=== PATIENT | male | born 1940 | race Caucasian/White ===

== ENCOUNTER 2017-05-21 06:31 | Day surgery (SDC) | payer MEDICARE, OTHER ==
[2017-05-20 14:59] LABS: HEMOGLOBIN 15.4 g/dL (13.5-17.5); MCH 34.4 pg (26.0-34.0); MCV 98.2 fL (80.0-100.0); MEAN PLATELET VOLUME 9.8 fL (7.4-10.4); RBC 4.48 10x6/uL (4.20-6.10); RDW 12.4 % (11.5-14.5); WBC 7.2 10x3/uL (4.8-10.8)
[~2017-05-21] VITALS: Ht 182.9 cm; Wt 104.3 kg
[~2017-05-21 06:31] MED LIST: ASPIRIN EC81 M1 PO; COZAAR100 MG PO; HYDROCODONE-APA1 TAB PO; NORVASC10 MG PO; PRAVACHOL40 MG PO; RESTORIL15 MG PO
[2017-05-21 08:15] VITALS: BP 105/60; Ht 182.9 cm; Wt 104.3 kg
[2017-05-21 08:50] LABS: ANION GAP 9.3 mmol/L (8-16); CALCIUM 8.7 mg/dL (8.5-10.1); CARBON DIOXIDE 28.7 mmol/L (21.0-32.0); CREATININE - SERUM 1.4 mg/dL (0.6-1.3)
--- NOTE | 2017-05-21 17:27 | NUR ---
1400- PT WITH HOB ELEVATED. VSS. AT BEDSIDE. 1415- DR. LONDON AT BEDSIDE, DISCUSSING PROCEDURAL FINDINGS. PT UP OOB TO BR, VOIDED WITHOUT DIFFICULTY 1425- IV D/C'D, PT TOLERATED. CATHETER INTACT. 1445- DISCHARGE INSTRUCTIONS COMPLETED. PAPERWORK SIGNED. 1450- PT DISCHARGED VIA WHEELCHAIR WITH .
== END 2017-05-21 14:50 | disposition home or self-care (01) ==
LOC: D.OPS 06:31 → D.PAN 09:30 → D.OPS 10:30 → D.PAN 10:30 → D.OPS 14:50
PROVIDERS: Anesthesiology
DX: N40.1 Benign prostatic hyperplasia with lower urinary tract symptoms (principal); N39.41 Urge incontinence; N13.8 Other obstructive and reflux uropathy; R35.0 Frequency of micturition; N30.10 Interstitial cystitis (chronic) without hematuria; Z01.812 Encounter for preprocedural laboratory examination

== ENCOUNTER 2018-08-25 11:37 | Outpatient (CLI) | payer MEDICARE, OTHER ==
[~2018-08-25] VITALS: Ht 182.9 cm; Wt 102.3 kg
--- NOTE | ~2018-08-25 | HEMODYNAMI ---
PATIENT:OG RANDLE MEDICAL RECORD: [id number] : 44 LOCATION:[facility] ADMISSION DATE: 08/25/18 Generatedon:08/25/201814:09 Patient name: OG RANDLE Patient #: [id number] SSN: : 1940 Date of study: 08/25/2018 Page: Of Hemodynamic Procedure Report Patient Data Patient Demographics Procedure consent was obtained First Name: OG Gender: Male Last Name: RAZIA : 1940 Middle Initial: F Age: 77 year(s) Patient #: [id number] Race: Unknown Additional ID: [id number] Contact details Address: [address] [place] [address] [place] State: [place] City: [place] Zip code: [address] Past Medical History Allergies: No known allergies Admission Admission Data Admission Date: 08/25/2018 Admission Time: 11:37 Admit Source: Other Weight (lbs.): 224.87 Weight (kg.): 102 Lab Results Lab Result Date: 08/25/2018 Lab Result Time: 12:10 Biochemistry Name Units Result Min Max BUN mg/dl 18 --(---*)-- 7 18 Creatinine mg/dl 1.1 --(--*-)-- 0.6 1.3 CBC Name Units Result Min Max Hematocrit % 45.8 --(-*--)-- 42 54 Hemoglobin g/dl 16 --(--*-)-- 13.5 17.5 Procedure Procedure Types Cath Procedure Diagnostic Procedure [facility] w/Coronaries Sedation Charges Moderate Sedation up to 15 minutes Procedure Description Procedure Date Procedure Date: 08/25/2018 Procedure Start Time: 13:48 Procedure End Time: 14:08 Procedure Staff Name Function Joaquín Kay MD Performing Physician Markie Bloom RT Monitor Herb Brooks RN Nurse Kye Woods RT Edge Banding Machine Offbearer [place] Otto RT Scrub Procedure Data Cath Procedure Fluoroscopy Diagnostic fluoroscopy Total fluoroscopy Time: 6.2 time: 6.2 min min Diagnostic fluoroscopy Total fluoroscopy dose: 937 dose: 937 mGy mGy Contrast Material Contrast Material Type Amount (ml) Isovue 300 84 Entry Location Entry Primary Successful Side Size Upsize Upsize Entry Closure Briscoe ccessful Closure Location (Fr) 1 (Fr) 2 (Fr) Remarks Device Remarks Radial Right 6 Fr Mechanical artery Short Compression Estimated blood loss: 5 ml Diagnostic catheters Device Type Used For End Catheter Placement DIAGNOSTIC Steven 110cm Procedure 5Fr catheter ([id number]) DIAGNOSTIC AR MOD 5Fr Procedure Catheter ([id number]) DIAGNOSTIC [place] 110cm 5 Procedure Fr catheter (784389) Procedure Complications No complications Procedure Medications Medication Administration Route Dosage Oxygen etCO2 Nasal cannula 2 l/min Heparin Flush Bag added to field 2 bags (1000units/500ml NS) 0.9% NaCl I.V. 100 ml/hr Radial Cocktail added to field 1 syringe (Verapomil 2mg/Nitro 400mcg/Heparin 1500units) Fentanyl I.V. 50 mcg Versed I.V. 1 mg Fentanyl I.V. 50 mcg Versed I.V. 1 mg Fentanyl I.V. 50 mcg Fentanyl I.V. 50 mcg Radial Cocktail I.A. 1 syringe (Verapomil 2mg/Nitro 400mcg/Heparin 1500units) Hemodynamics Rest HGB: 16 (g/dl) Heart Rate: 63 (bpm) Pressure Samples Time Site Value (mmHg) Purpose Heart Use Rate(bpm) 13:52 LV 129/-3,8 Snapshot 83 13:53 AO 112/39(80) Pullback 72 13:53 LV 111/2,12 Pullback 72 Gradients Valve Time Site 1 Site 2 Mean SEP/DFP Peak To Heart Use (mmHg) (sec/min) Peak Rate (mmHg) (bpm) Aortic 13:53 LV AO 0 7 0 72 111/2,12 112/39(80) Calculations Valve P-P Mean Valve Index Valve Source Name Gradient Area Flow (cm2) Aortic 0 0 0 0 Snapshots Pre Cath Intra NCS Post Cath Vital Signs Time Heart Resp SPO2 etCO2 NIBP (mmHg) Rhythm Pain Sedation Rate (ipm) (%) (mmHg) Status Level (bpm) 13:14:48 82 17 100 26.8 143/79(118) NSR 0 (11) 10(A) , No pain 13:19:04 86 16 99 18.6 135/76(113) NSR 0 (11) 10(A) , No pain 13:23:20 81 16 99 35 122/74(105) NSR 0 (11) 10(A) , No pain 13:27:32 70 16 99 27.6 127/71(114) NSR 0 (11) 10(A) , No pain 13:31:44 76 16 98 38.7 128/74(104) NSR 0 (11) 10(A) , No pain 13:35:56 77 16 99 39.5 133/78(112) NSR 0 (11) 10(A) , No pain 13:40:10 65 17 99 39.4 148/76(120) NSR 0 (11) 10(A) , No pain 13:44:28 74 16 97 39.4 135/67(96) NSR 0 (11) 10(A) , No pain 13:48:44 59 16 98 46.9 138/69(106) NSR 0 (11) 9(A) , No pain 13:53:02 67 17 98 28.3 121/69(92) NSR 0 (11) 9(A) , No pain 13:57:12 78 16 98 40.9 139/70(104) NSR 0 (11) 9(A) , No pain 14:02:19 87 16 98 35 169/92(132) NSR 0 (11) 9(A) , No pain 14:06:39 88 17 98 23.1 185/103(140) NSR 0 (11) 10(A) , No pain Medications Time Medication Route Dose Verified Delivered Reason Notes Effectiveness by by 13:11:20 Oxygen etCO2 2 l/min Joaquín Herb Per Nasal Rahul Brooks RN physician cannula 13:11:36 Heparin Flush added 2 bags Joaquín Herb used for Bag to Rahul Brooks mold filler plastic dolls (1000units/500ml field NS) 13:11:44 0.9% NaCl I.V. 100 Joaquín Herb Per ml/hr Rahul Brooks RN physician 13:11:52 Radial Cocktail added 1 Joaquín Herb used for (Verapomil to syringe Rahul Brooks mold filler plastic dolls 2mg/Nitro field 400mcg/Heparin 1500units) 13:42:11 Fentanyl I.V. 50 mcg Joaquín Herb for sedation Rahul Brooks RN 13:42:18 Versed I.V. 1 mg Joaquín Herb for sedation Rahul Brooks RN 13:44:24 Fentanyl I.V. 50 mcg Joaquín Herb for sedation Rahul Brooks RN 13:44:27 Versed I.V. 1 mg Joaquín Herb for sedation Rahul Brooks RN 13:47:58 Fentanyl I.V. 50 mcg Joaquín Herb for sedation Rahul Brooks RN 13:49:35 Fentanyl I.V. 50 mcg Joaquín Herb for sedation Rahul Brooks RN 13:49:43 Radial Cocktail I.A. 1 Joaquín Joaquín for (Verapomil syringe Rahul Kay MD vasodilation 2mg/Nitro 400mcg/Heparin 1500units) Procedure Log Time Note 12:30:44 Kye Suit RT(R) sent for patient. Start room use. 12:34:18 Informed consent obtained and on chart 12:34:21 Admit Source: Other 12:34:47 Diagnostic Cath status Elective 12:34:48 Time tracking: Regular hours (M-F 7:00 - 5:00) 12:34:51 Plan of Care:Hemodynamics will remain stable., Cardiac rhythm will remain stable., Comfort level will be maintained., Respiratory function will remain adequate., Patient/ family verbilizes understanding of procedure., Procedure tolerated without complication., Recovers from procedure without complications.. 13:05:36 H&P Date Dictated: 08/23/2018 Within 30 days and on chart., H&P Addendum completed by physician on day of procedure. (MUST COMPLETE FOR ALL OUTPATIENTS). 13:06:27 Patient received from Pre/Post Procedure Room to [facility] 2 Alert and oriented. Tansferred to table in Supine position. 13:06:33 Warm blankets applied, and maris hugger turned on for patient comfort. 13:06:56 Correct patient and procedure confirmed by team. 13:11:20 Oxygen 2 l/min etCO2 Nasal cannula was administered by Herb Brooks RN; Per physician; 13:11:36 Heparin Flush Bag (1000units/500ml NS) 2 bags added to field was administered by Herb Brooks RN; used for procedure; 13:11:44 0.9% NaCl 100 ml/hr I.V. was administered by Herb Brooks RN; Per physician; 13:11:52 Radial Cocktail (Verapomil 2mg/Nitro 400mcg/Heparin 1500units) 1 syringe added to field was administered by Herb Brooks RN; used for procedure; 13:13:37 ECG and BP/O2 sat monitors applied to patient. 13:13:38 Vital chart was started 13:13:41 Baseline sample Acquired. 13:13:43 Rhythm: sinus rhythm 13:13:45 Full Disclosure recording started 13:13:45 Pre-procedure instructions explained to patient. 13:13:46 Pre-op teaching completed and patient verbalized understanding. 13:13:47 Family in waiting room. 13:13:48 Patient NPO since Midnight. 13:13:54 Patient allergic to No known allergies 13:16:41 Is the patient allergic to Iodine/contrast media? No. 13:16:45 Is patient on blood thinner?No 13:16:45 Patient diabetic? No. 13:16:47 Previous problem with sedation/anesthesia? No ? 13:16:48 Snore? Yes 13:16:49 Sleep apnea? No 13:16:49 Deviated septum? No 13:16:50 Opens mouth fully? Yes 13:16:51 Sticks out tongue? Yes 13:16:52 Airway obstruction? No ? 13:16:56 Dentures? Yes in tight 13:16:58 Modified Branden's test Ulnar < 7 seconds 13:17:00 Patient pain scale 0/10 ?. 13:17:05 IV patent on arrival in left wrist with 0.9% NaCl at O. 13:18:30 Lab Result : BUN 18 mg/dl 13:18:31 Lab Result : Creatinine 1.1 mg/dl 13:18:31 Lab Result : Hematocrit 45.8 % 13:18:31 Lab Result : Hemoglobin 16 g/dl 13:18:37 Patient Weight : 224.87 lbs 13:18:40 Lab results completed and on chart. 13:18:42 Right Radial & Right Groin area was prepped with chlora-prep and draped in sterile fashion 13:18:44 Alarms reviewed by R. N. 13:18:45 Sharps counted by scrub and verified by R.N. 13:18:47 Use device set Radial Dx or PCI 13:18:48 ACIST Syringe (67133) opened to sterile field. 13:18:48 Medline Cath Pack ([id number]) opened to sterile field. 13:18:49 ACIST Hand Control (63283) opened to sterile field. 13:18:50 ACIST Manifold (38380) opened to sterile field. 13:18:50 Tegaderm 4 x 4 (1626W) opened to sterile field. 13:18:51 MBrace Wrist Support ([id number]) opened to sterile field. 13:18:52 Bag Decanter (2002S) opened to sterile field. 13:18:55 SHEATH 6Fr Prelude Radial ([id number]) opened to sterile field. 13:18:56 DIAGNOSTIC WIRE .035 260cm J wire (649761) opened to sterile field. 13:26:27 Zero performed for pressure channel P1 13:42:01 Physician arrived 13:42:01 --------ALL STOP TIME OUT------ 13:42:02 Final Timeout: patient, procedure, and site verified with staff and physician. All members of the team are in agreement. 13:42:04 Right Radial & Right Groin site verified by team. 13:42:06 Physical assessment completed. ASA score P 2 - A patient with mild systemic disease as per Joaquín Kay MD. 13:42:08 Sedation plan: IV Moderate Sedation Medication:Versed, Fentanyl 13:42:11 Fentanyl 50 mcg I.V. was administered by Herb Brooks RN; for sedation; 13:42:18 Versed 1 mg I.V. was administered by Herb Brooks RN; for sedation; 13:44:24 Fentanyl 50 mcg I.V. was administered by Herb Brooks RN; for sedation; 13:44:27 Versed 1 mg I.V. was administered by Herb Brooks RN; for sedation; 13:47:58 Fentanyl 50 mcg I.V. was administered by Herb Brooks RN; for sedation; 13:48:04 Procedure started. 13:48:08 Local anesthetic to right radial artery with Lidocaine 2% by Joaquín Kay MD.INITIAL ACCESS ONLY 13:49:35 Fentanyl 50 mcg I.V. was administered by Herb Brooks RN; for sedation; 13:49:38 A 6 Fr Short sheath was inserted into the Right Radial artery 13:49:43 Radial Cocktail (Verapomil 2mg/Nitro 400mcg/Heparin 1500units) 1 syringe I.A. was administered by Joaquín Kay MD; for vasodilation; 13:50:02 A DIAGNOSTIC Steven 110cm 5Fr catheter (083592) was advanced over the wire and used for Procedure. 13:50:43 Zero performed for pressure channel P1 13:50:47 Zero performed for pressure channel P1 13:52:35 LV gram done using GUNN 13:52:38 Injector settings: Ml/sec: 5, Volume: 15, 13:52:39 LV hemodynamics recorded. 13:52:47 EF : 55 % 13:54:20 Catheter removed. unable to cannulate vessel. 13:54:51 A DIAGNOSTIC AR MOD 5Fr Catheter ([id number]) was advanced over the wire and used for Procedure. 13:57:39 Catheter removed. unable to cannulate vessel. 13:57:51 GUIDE 5FR AR2.0 catheter ([id number]) opened to sterile field. 13:59:41 RCA angiography performed. 13:59:48 A DIAGNOSTIC [place] 110cm 5 Fr catheter (853014) was advanced over the wire and used for Procedure. 14:01:28 LCA angiography performed. 14:03:04 Catheter removed. 14:03:10 TR BAND Standard ([id number]) opened to sterile field. 14:03:33 Sheath removed intact; hemostasis achieved with Mechanical Compression to the Right Radial artery. 14:03:36 Procedure ended.(Physican Out) 14:03:53 Fluoroscopy time 06.20 minutes. 14:04:00 Fluoroscopy dose: 937 mGy 14:04:00 Flurop Dose total: 937 14:04:22 Contrast amount:Isovue 300 84ml. 14:04:24 Sharps counted by scrub and verified by R.N. 14:06:03 Insertion/operative site no bleeding no hematoma. 14:06:15 Post right radial artery:stable, soft, clean and dry 14:06:20 Post Procedure Pulses reassessed and unchanged 14:06:22 Post-procedure physical assessment completed. ASA score P 2 - A patient with mild systemic disease as per Joaquín Kay MD. 14:06:25 Post procedure rhythm: unchanged. 14:06:30 Estimated blood loss: 5 ml 14:06:32 Post procedure instruction explained to patient.Patient verbalizes understanding. 14:06:32 Patient needs reinforcement of post procedure teaching. 14:06:59 Procedure type changed to Cath procedure, Diagnostic procedure, LHC, LHC w/Coronaries, Sedation Charges, Moderate Sedation up to 15 minutes 14:07:52 Procedure and supply charges have been captured, reviewed, submitted and are correct. 14:07:55 Procedure Complication : No complications 14:07:58 Vital chart was stopped 14:07:58 See physician's report for complete and final results. 14:08:01 Report given to Pre/Post Procedure Room. 14:08:04 Patient transfered to Pre/Post Procedure Room with Stretcher. 14:08:05 Procedure ended. 14:08:05 Full Disclosure recording stopped 14:08:09 End room use (Document Last) Device Usage Item Name Manufacture Quantity Catalog Number Hospital Part Current M inimal Lot# / Charge Number Stock Stock Serial# Code ACIST Syringe Acist 1 04040 386990 460523 104189 2 0 (47619) Medical Systems Inc Medline Cath Cardinal 1 [id number] 078547 18113 188376 5 Pack Health ([id number]) ACIST Hand Acist 1 40332 696164 813224 311058 5 Control (37559) Medical Systems Inc ACIST Manifold Acist 1 69789 276530 876735 531133 5 (60390) Medical Systems Inc Tegaderm 4 x 4 3M 1 1626W 868839 044575 730960 5 (1626W) MBrace Wrist Advanced 1 140-0250-00 311414 58574 705521 5 Support Vascular ([id number]) Dynamics Bag Decanter Microtek 1 2001S 060256 45162 406707 5 (2001S) Medical Inc. SHEATH 6Fr Merit 1 [id number] 363863 840482 327416 5 Prelude Radial Medical ([id number]) DIAGNOSTIC WIRE St Eliazar 1 074934 714983 371209 931999 3 0 .035 260cm J wire (745270) DIAGNOSTIC Terumo 1 75-2266 080844 439835 949809 5 Steven 110cm 5Fr catheter (667502) DIAGNOSTIC AR Cardinal 1 264156P 448429 659305 473012 1 5 MOD 5Fr Health Catheter (357389E) GUIDE 5FR AR2.0 Medtronic 1 [id number] 802650 319973 439263 1 catheter ([id number]) DIAGNOSTIC Terumo 1 04-1286 225370 308440 979088 5 [place] 110cm 5 Fr catheter (897436) TR BAND Terumo 1 [id number] 166761 991169 706800 4 0 Standard ([id number]) Signature Audit [place] Stage Time Signature Unsigned Intra-Procedure 08/25/2018 Markie Bloom 2:08:58 PM RT(R) Signatures Monitor : Markie Bloom RT Signature : Date : Time : [address] [place] [address]
[2018-08-25 11:55] VITALS: BP 163/64; Ht 182.9 cm; Wt 102.3 kg
[2018-08-25 12:15] LABS: BASOPHILS 0.4 % (0-2); EOSINOPHILS 13.4 % (0-7); HEMATOCRIT 45.8 % (42.0-54.0); IMMATURE GRANULOCYTES 0.1 % (0-5); LYMPHOCYTES 20.8 % (15-50); MCH 34.3 pg (26.0-34.0); MCHC 34.9 g/dL (31.0-37.0); MCV 98.1 fL (80.0-100.0); MEAN PLATELET VOLUME 9.7 fL (7.4-10.4); MONOCYTES 6.7 % (2-11); NEUTROPHILS 58.6 % (40-80); RBC 4.67 10x6/uL (4.20-6.10); RDW 12.3 % (11.5-14.5); WBC 9.3 10x3/uL (4.8-10.8)
[2018-08-25 12:32] LABS: ANION GAP 13.7 mmol/L (8-16); CALCIUM 9.7 mg/dL (8.5-10.1); CARBON DIOXIDE 26.9 mmol/L (21.0-32.0); CREATININE - SERUM 1.1 mg/dL (0.6-1.3); POTASSIUM - SERUM 4.6 mmol/L (3.5-5.1)
[2018-08-25 12:36] LABS: PLATELET COUNT 245 10x3/uL (130-400)
== END 2018-08-25 16:35 | disposition home or self-care (01) ==
LOC: D.CATH 11:37
PROVIDERS: Internal Medicine Cardiovascular Disease
DX: R07.89 Other chest pain (principal); Z01.812 Encounter for preprocedural laboratory examination

== ENCOUNTER → 2018-08-30 14:28 | Outpatient (CLI) | payer MEDICARE, OTHER ==
[2018-08-25 11:55] VITALS: BMI 30.6
== END | disposition home or self-care (01) ==
LOC: D.CT 14:28
DX: R10.11 Right upper quadrant pain (principal)

== ENCOUNTER → 2018-09-23 07:19 | Outpatient (CLI) | payer MEDICARE, OTHER ==
[2018-08-25 11:55] VITALS: BMI 30.6
== END | disposition home or self-care (01) ==
LOC: D.CT 07:19
DX: R91.8 Other nonspecific abnormal finding of lung field (principal)

== ENCOUNTER 2018-11-06 17:56 | Emergency (ER) | payer MEDICARE, OTHER ==
[~2018-11-06] VITALS: Ht 182.9 cm; Wt 104.5 kg
[2018-11-06 18:01] VITALS: Ht 182.9 cm; Wt 104.5 kg
[2018-11-06] MEDS ORDERED: MOBIC7.5 MG PO (18:02)
[2018-11-06 18:37] LABS: APPEARANCE CLEAR (CLEAR); BILIRUBIN NEGATIVE (NEGATIVE); COLOR YELLOW (YELLOW); GLUCOSE NEGATIVE (NEGATIVE); KETONE NEGATIVE (NEGATIVE); NITRITE NEGATIVE (NEGATIVE); PROTEIN NEGATIVE (NEGATIVE); UROBILINOGEN NORMAL (NORMAL)
[2018-11-06 18:38] LABS: BACTERIA FEW /hpf (NONE SEEN); RED CELLS - URINE 0-5 /hpf (0-5); WHITE CELLS - URINE 0-5 /hpf (0-5)
[2018-11-06 18:58] LABS: BASOPHILS 0.5 % (0-2); EOSINOPHILS 16.7 % (0-7); HEMATOCRIT 44.1 % (42.0-54.0); HEMOGLOBIN 15.1 g/dL (13.5-17.5); IMMATURE GRANULOCYTES 0.1 % (0-5); LYMPHOCYTES 16.4 % (15-50); MCH 33.3 pg (26.0-34.0); MCHC 34.2 g/dL (31.0-37.0); MCV 97.4 fL (80.0-100.0); MEAN PLATELET VOLUME 9.8 fL (7.4-10.4); MONOCYTES 8.3 % (2-11); RBC 4.53 10x6/uL (4.20-6.10); RDW 12.4 % (11.5-14.5); WBC 10.2 10x3/uL (4.8-10.8)
[2018-11-06 19:01] LABS: PLATELET COUNT 185 10x3/uL (130-400)
[2018-11-06 19:08] LABS: APTT 26.3 SECONDS (22.8-39.4); INR 0.96 (0.85-1.17); PROTIME 12.3 SECONDS (11.6-15.0)
[2018-11-06 19:18] LABS: ALBUMIN 3.9 g/dL (3.4-5.0); ALKALINE PHOSPHATASE 66 U/L (46-116); ALT (SGPT) 15 U/L (10-68); BILIRUBIN - TOTAL 0.42 mg/dL (0.2-1.3); CALC OSMOLALITY 278 mosm/kg (275-300); CALCIUM 8.9 mg/dL (8.5-10.1); CARBON DIOXIDE 28.1 mmol/L (21.0-32.0); CHLORIDE - SERUM 103 mmol/L (98-107); CREATININE - SERUM 1.3 mg/dL (0.6-1.3); GLUCOSE 108 mg/dL (74-106); POTASSIUM - SERUM 4.2 mmol/L (3.5-5.1); PROTEIN - SERUM 7.5 g/dL (6.4-8.2); SODIUM 138 mmol/L (136-145); UREA NITROGEN 18 mg/dL (7-18); eGFR NON AFRICAN AMERICAN 57 mL/min (90-120)
[2018-11-06 19:20] LABS: LIPASE 134 U/L (73-393)
[2018-11-06 19:21] LABS: TROPONIN-I < 0.017 ng/mL (0.000-0.060)
[2018-11-06] MEDS ORDERED: LEVAQUIN750 MG PO (21:02)
[2018-11-06] MEDS ORDERED: FLAGYL500 MG PO (21:02)
[2018-11-06] MEDS ORDERED: TYLENOL W/CODEI1 TAB PO (21:03)
[2018-11-06 21:18] VITALS: BP 158/75
== END 2018-11-06 21:18 | disposition home or self-care (01) ==
LOC: D.ER 17:56
PROVIDERS: Family Medicine
DX: K57.32 Diverticulitis of large intestine without perforation or abscess without bleeding (principal); K92.1 Melena; I10 Essential (primary) hypertension

== ENCOUNTER → 2018-11-29 18:20 | Outpatient (CLI) | payer MEDICARE, OTHER ==
[2018-11-06 18:01] VITALS: BMI 31.2
[~2018-11-29 18:20] MED LIST changes: +FLAGYL500 MG PO; +LEVAQUIN750 MG PO; +MOBIC7.5 MG PO; +NORCO 5/325 TAB1 TAB PO; +TYLENOL W/CODEI1 TAB PO
== END | disposition home or self-care (01) ==
LOC: D.LABREF 18:20
DX: R31.9 Hematuria, unspecified (principal)

== ENCOUNTER 2018-12-07 09:30 | Inpatient (IN) | payer MEDICARE, OTHER ==
[2018-12-06 13:05] LABS: BASOPHILS 0.5 % (0-2); EOSINOPHILS 20.4 % (0-7); HEMATOCRIT 45.4 % (42.0-54.0); HEMOGLOBIN 15.6 g/dL (13.5-17.5); IMMATURE GRANULOCYTES 0.1 % (0-5); LYMPHOCYTES 24.9 % (15-50); MCH 33.2 pg (26.0-34.0); MCHC 34.4 g/dL (31.0-37.0); MCV 96.6 fL (80.0-100.0); MEAN PLATELET VOLUME 9.8 fL (7.4-10.4); MONOCYTES 6.8 % (2-11); NEUTROPHILS 47.3 % (40-80); PLATELET COUNT 184 10x3/uL (130-400); RDW 12.5 % (11.5-14.5); WBC 8.8 10x3/uL (4.8-10.8)
[2018-12-06 13:17] LABS: CALCIUM 8.8 mg/dL (8.5-10.1); CARBON DIOXIDE 29.5 mmol/L (21.0-32.0); CREATININE - SERUM 1.2 mg/dL (0.6-1.3); POTASSIUM - SERUM 4.5 mmol/L (3.5-5.1)
[~2018-12-07] VITALS: Ht 180.3 cm; Wt 102.1 kg
[~2018-12-07 09:30] MED LIST changes: -NORCO 5/325 TAB1 TAB PO; -RESTORIL15 MG PO; +TEMAZEPAM30 MG PO
[2018-12-07 09:47] VITALS: BP 163/67
[2018-12-07 16:26] VITALS: BP 162/75
[2018-12-07 16:56] VITALS: BP 165/75; BMI 31.4
--- NOTE | 2018-12-07 19:55 | NUR ---
FAMILY/NEIGHBOR AT BEDSIDE, A&0 X 4. ABDOMEN DISTENDED, BOWEL SOUNDS ACTIVE X 4. ALL DRESSINGS CLEAN EXCEPT SCANT BLOOD NOTED ON RIGHT UPPER ABDOMEN BANDANGE. WILL CONTINUE TO MONITOR.
[2018-12-07 20:00] VITALS: BP 171/78
[2018-12-08] VITALS: BP 123/66
--- NOTE | 2018-12-08 03:20 | NUR ---
CONCUR W/ INFORMATICS CONSULTANT ASSESSMENT
[2018-12-08 04:00] VITALS: BP 130/64
[2018-12-08 05:44] LABS: BASOPHILS 0 % (0-2); EOSINOPHILS 0 % (0-7); HEMATOCRIT 41.7 % (42.0-54.0); HEMOGLOBIN 14.5 g/dL (13.5-17.5); IMMATURE GRANULOCYTES 0.2 % (0-5); LYMPHOCYTES 6.4 % (15-50); MCH 33.3 pg (26.0-34.0); MCHC 34.8 g/dL (31.0-37.0); MCV 95.9 fL (80.0-100.0); MEAN PLATELET VOLUME 9.8 fL (7.4-10.4); MONOCYTES 5.5 % (2-11); NEUTROPHILS 87.9 % (40-80); PLATELET COUNT 188 10x3/uL (130-400); RBC 4.35 10x6/uL (4.20-6.10); RDW 12.4 % (11.5-14.5)
[2018-12-08 05:47] LABS: WBC 13.6 10x3/uL (4.8-10.8)
[2018-12-08 06:26] LABS: ANION GAP 16.9 mmol/L (8-16); CALCIUM 8.1 mg/dL (8.5-10.1); CARBON DIOXIDE 22.5 mmol/L (21.0-32.0); CREATININE - SERUM 1.2 mg/dL (0.6-1.3); POTASSIUM - SERUM 4.4 mmol/L (3.5-5.1)
[2018-12-08 10:04] VITALS: BP 128/61
[2018-12-08 12:16] VITALS: Ht 180.3 cm; Wt 102.1 kg
[2018-12-08 17:34] VITALS: BP 117/59
[2018-12-08 20:54] VITALS: BP 132/62
--- NOTE | 2018-12-08 23:52 | NUR ---
PT REPORTS FEELING OF NOT FULLY EMPTYING BLADDER, SUGGESTED BLADDER SCANNER, PT REFUSED STATING HE WASN'T FULL YET. WILL CONTINUE TO MONITOR OUTPUT.
[2018-12-09 00:59] VITALS: BP 129/50
--- NOTE | 2018-12-09 02:50 | NUR ---
PT LYING IN BED RESTING WITHOUT DISTRESS OR NEEDS. CONCUR W/ SERVER MANAGER ASSESSMENT. CL IN REACH, WILL CONTINUE TO MONITOR
--- NOTE | 2018-12-09 03:00 | NUR ---
PT STATES HIS CAME BY AND BROUGHT, "SUPPLIES," FROM HOME. PT STATED HE SELF CATHS AT HOME AND HE SELF CATHED HISELF AFTER SHE BROUGHT THEM.
[2018-12-09 06:40] LABS: ANION GAP 13.4 mmol/L (8-16); CALCIUM 7.2 mg/dL (8.5-10.1); CARBON DIOXIDE 25.1 mmol/L (21.0-32.0); POTASSIUM - SERUM 4.5 mmol/L (3.5-5.1)
[2018-12-09 06:42] LABS: CREATININE - SERUM 1.6 mg/dL (0.6-1.3)
[2018-12-09 07:33] LABS: BASOPHILS 0.2 % (0-2); EOSINOPHILS 2.8 % (0-7); HEMATOCRIT 37.4 % (42.0-54.0); HEMOGLOBIN 12.2 g/dL (13.5-17.5); IMMATURE GRANULOCYTES 0.2 % (0-5); LYMPHOCYTES 17.4 % (15-50); MCHC 32.6 g/dL (31.0-37.0); NEUTROPHILS 73.4 % (40-80); PLATELET COUNT 152 10x3/uL (130-400); RDW 13.3 % (11.5-14.5)
[2018-12-09 08:23] LABS: MCV 101.1 fL (80.0-100.0)
--- NOTE | 2018-12-09 08:32 | NUR ---
DICE SPOTTER NOTE-STATES PASSING GAS BUT BOWEL SOUNDS HYPOACTIVE. NO NAUSEA AT PRESENT. STATES PAIN LEVEL5/10 BUT STATES GLAZE GRINDER IS WORKING TO HELP. LAP SITES CLEAN AND DRY WITH MIDLINE DRESSING CLEAN AND DRY. ABD DISTENDED. ENCOURAGED TO BE UP IN CHAIR AND IN HALLWAY THIS SHIFT. WILL CONTINUE TO MONITOR
[2018-12-09 08:49] VITALS: BP 125/58
--- NOTE | 2018-12-09 10:44 | OP ---
PATIENT NAME: OG RANDLE MEDICAL RECORD: [id number] :44 LOCATION:D.MS [id number] ADMISSION DATE:12/07/18 SURGEON: MASTER BARNETT MD DATE OF OPERATION: 12/07/2018 PREOPERATIVE DIAGNOSES: 1. Recurrent diverticulitis. 2. Hypertension. 3. Hypercholesterolemia. POSTOPERATIVE DIAGNOSES: 1. Recurrent diverticulitis. 2. Hypertension. 3. Hypercholesterolemia. PROCEDURE: Hand-assisted laparoscopic sigmoid colectomy. SURGEON: Master Barnett MD POPCORN ATTENDANT: Narcisa Larkin APRN REPORT OF OPERATION: The patient's abdomen was prepped and draped in sterile fashion. A cutdown was made in the suprapubic region in the midline and electrocautery was used to dissect through the subcutaneous tissues and fascia into the abdominal cavity. Once inside, a GelPort was inserted with a 5-mm trocar within it. The abdomen was insufflated and then a 5-mm trocar was placed under direct visualization in the right lateral abdomen and a 12-mm trocar was placed just anterior to the right anterior-superior iliac crest. The patient had some inflammatory adhesions of the sigmoid colon to the inferior aspect of the abdominal cavity. These were taken down using electrocautery. Eventually, we were able to free up this portion of the bowel and mobilize it medially. We took down the white line of Toldt and mobilized the splenic flexure using electrocautery. In order to facilitate this, I actually had to put another 5-mm trocar in the left lateral abdomen. Once the splenic flexure was mobilized, then we were able to move the entire left colon medially. A window was made in the mesocolon at the rectosigmoid junction and the proximal rectum was transected with a 45 blue load Endo-COLTEN stapler. The mesentery was taken down with two fires of 45 white load Endo-COLTEN stapler. We then eviscerated this portion of the sigmoid colon through the wound protector. We performed clamp and tie technique to take down some of the residual mesentery. I then eventually transected the distal descending colon using electrocautery. This portion of bowel was sent off for permanent specimen. A 2-0 Prolene was used to make a pursestring on the open bowel and a 29 EEA anvil was inserted. After the pursestring was tied down tightly, then the multiple anal dilators were placed through the anus and rectum followed by the 29 EEA stapler. An end-to-end anastomosis was performed under direct visualization. At the conclusion of this, we had 2 complete rings of tissue in the stapler and we checked the anastomosis under water by instilling air into the rectum and there was no sign of leak. The 3-0 silks were used in a Lemberted fashion to oversew the staple line. We then irrigated out the abdomen thoroughly with normal saline. The midline fascia was then closed with running #1 loop PDS's times 2. The 12-mm trocar site fascia was closed with a single interrupted #0 Vicryl. The wounds were irrigated out with normal saline and then closed with anisa. COMPLICATIONS: None. OPERATIVE REPORT [id number] RAZIAOG CONDITION: Stable. ANESTHESIA: General endotracheal. BLOOD LOSS: 30 mL. TRANSINT:[id number] Voice Confirmation ID: [id number] DOCUMENT ID: [id number] MASTER BARNETT MD at 1044 CC: DOMINIQUE NGUYEN MD and LAUREN CAMEJO MD [id number] DICTATION DATE: 12/07/18 1533 CERAMIC SPRAYER: 12/07/18 1823 ADM IN [facility] [address] [place] [address]
--- NOTE | 2018-12-09 12:57 | MORECARE ---
CASE MANAGEMENT DISCHARGE SUMMARY PATIENT: OG RANDLE UNIT: [id number] ADM DATE: 12/07/18 AGE: 78 : 42 SEX: M ROOM/BED: D.2205 AUTHOR: TARUN,DOC PHYSICIAN: REFERRING PHYSICIAN: JESI BARNETT MD DATE OF SERVICE: 12/09/18 Discharge Plan Patient Name: OG RANDLE Facility: [facility]:[place] : 1940 Planned Disposition: Home Anticipated Discharge Date: Discharge Date: Expected LOS: Initial Reviewer: [email or web address] Initial Review Date: 12/07/2018 Generated: 12/09/18 1:57 pm Comments DCP- Discharge Planning Updated by [email or web address]: Gabriela Klein on 12/09/18 11:[address] Patient Name: OG RANDLE Admission Status: Elective Accout number: [id number] Admission Date: 12-07-2018 : 1940 Admission Diagnosis: Attending: JESI BARNETT Current LOS: 2 Anticipated DC Date: Planned Disposition: Home Primary Insurance: MEDICARE A & B Discharge Planning Comments: CM met with patient to assess discharge planning needs. Patient lives independently at home where he plans to return at discharge. 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 He states his home is safe to return. He denies any HH or DME needs at this time. IMM served and explained. He anticipates to be discharged tomorrow. CM will continue to follow and assist with DC planning as needed Childcare Center Director: Gabriela Klein DCPIA - Discharge Planning Initial Assessment Updated by [email or web address]: Gabriela Klein on 12/09/18 12:52 pm * Is the patient Alert and Oriented? Yes * How many steps to enter\exit or inside your home? * PCP [facility] * [facility] * Preadmission Environment Home with Family * ADLs Independent * Equipment None * List name and contact numbers for known caregivers / representatives who currently or will assist patient after discharge: ESSENCE () [phone] * Verbal permission to speak to the caregivers and representatives has been obtained from the patient. N/A * Community resources currently utilized None * Additional services required to return to the preadmission environment? No * Can the patient safely return to the preadmission environment? Yes * Has this patient been hospitalized within the prior 30 days at any hospital? No Coverage Notice Reviewer: [email or web address] Pj Klein Notice Issued Date-Time: 12/09/2018 12:00 Notice Type: IM Discharge Notice Notice Delivered To: Patient Relationship to Patient: Expeditionary Fighting Vehicle Crewman Name: Delivery Method: HAND - Hand Delivered Brinda Days: Prior Verbal Notification: Recipient Understood Notice: Yes Recipient Signature: Yes Med Rec Note Co-signed by Attending: Coverage Notice Comment: Patient Name: OG RANDLE Page [phone] at 1257 All edits/amendments must be made on the electronic document DICTATION DATE: 12/09/181255 PROTOTYPE MODEL MAKER: SOBEIDA 12/09/18 1256 RPT#: [id number] DC DATE: STATUS: ADM IN [facility] [address] [place] [address] END OF REPORT
[2018-12-09 16:16] VITALS: BP 119/60
--- NOTE | 2018-12-09 22:00 | NUR ---
SUPINE IN BED, DENIES NEEDS AT THIS TIME. STATES HIS PAIN IS WELL CONTROLLED. REPORTS HE HAS BEEN AND WILL STILL CONTINUE TO SELF-CATH NEEDED. INFORMED PT OF IMPORTANCE OF ACCURATE OUTPUT RECORDING. PT AGRRED TO EMPTY HIS VOIDS INTO URINAL OR HAT FOR MORE SPECIFIC I&Os. SUGGESTED PT APPLY SCDs, PT REFUSED. WILL CONTINUE TO MONITOR.
--- NOTE | 2018-12-10 03:35 | NUR ---
RESTING QUITELY RESP UNLABORED NO APPARENT DISTRESS CALL ESPINOZA TINAJERO
--- NOTE | 2018-12-10 03:50 | NUR ---
WHILE PASSING THE ROOM, I HEARD THE TOILET FLUSH. KNOCKED ON DOOR AND ENTERED PT WAS LAYING BACK IN HIS BED. GLANCED IN BATHROOM TO SEE BOTH URINALS WERE EMPTY AND URINE HAT THAT WAS PLACED UNDER TOILET SEAT WAS IN THE TRASH. REINFORCED TO PT THAT WE NEED RECORD THE AMOUNT OF URINE IN MLS TO HELP ASSESS HIS KIDNEY FUNCTION. PT SAID, "OH OKAY, OH YEAH," AND THEN BEGAN TO SPEAK ABOUT HOW DISTENDED HE'S BEEN AND HOW HE HAS BEEN HOLDING FLUID, BUT HE IS GOING HOME TODAY. PT THE REQUESTED ALL LIGHTS BE OFF AND DOOR SHUT SO HE COULD TRY TO GET SOME MORE REST.
[2018-12-10 07:51] LABS: BASOPHILS 0.2 % (0-2); CALCIUM 7.3 mg/dL (8.5-10.1); CARBON DIOXIDE 23.9 mmol/L (21.0-32.0); CHLORIDE - SERUM 104 mmol/L (98-107); EOSINOPHILS 3.4 % (0-7); GLUCOSE 102 mg/dL (74-106); HEMATOCRIT 36.2 % (42.0-54.0); HEMOGLOBIN 11.7 g/dL (13.5-17.5); IMMATURE GRANULOCYTES 0.4 % (0-5); MCH 32.5 pg (26.0-34.0); MCHC 32.3 g/dL (31.0-37.0); MCV 100.6 fL (80.0-100.0); MEAN PLATELET VOLUME 10.1 fL (7.4-10.4); MONOCYTES 6.8 % (2-11); NEUTROPHILS 77.2 % (40-80); PLATELET COUNT 157 10x3/uL (130-400); POTASSIUM - SERUM 3.9 mmol/L (3.5-5.1); RDW 13.1 % (11.5-14.5); SODIUM 137 mmol/L (136-145); WBC 8.4 10x3/uL (4.8-10.8); eGFR NON AFRICAN AMERICAN 77 mL/min (90-120)
[2018-12-10 08:25] LABS: CALC OSMOLALITY 274 mosm/kg (275-300); UREA NITROGEN 16 mg/dL (7-18)
[2018-12-10 08:37] VITALS: BP 169/73
--- NOTE | 2018-12-10 10:37 | NUR ---
NUTRITION F/U PT NOW ON CLEAR LIQUID DIET. WILL CONTINUE TO MONITOR DIET ADVANCEMENT, PO INTAKE. RD FOLLOWING
[2018-12-10 12:27] VITALS: BP 146/68
[2018-12-10 16:32] VITALS: BP 163/71
--- NOTE | 2018-12-10 19:00 | NUR ---
WENT TO ENTER PT ROOM AND PT NOT IN ROOM. PT AT NURSES STATION UPSET. STATES THAT HE IS "CHOKING ON PHLEGM" AND "I NEED MEDICINE NOW!!" CALMED PT DONE. ASSESSED LUNGS. NO AUDIBLE CRACKLES OR WHEEZES NOTICED WHEN AUSCULTATING. RETURNED PT BACK TO BED WITH NO ISSUES. CALL LIGHT IN REACH.
[2018-12-10 20:00] VITALS: BP 157/60
--- NOTE | 2018-12-10 22:00 | NUR ---
ADMINSTERED PT MEDICATION WITH NO ISSUES. PT TOLERATED WELL. PT APOLOGIZED FOR "OUTBURST" STATES "I HOPE TO GET SOME REST."
[2018-12-11 04:00] VITALS: BP 157/74
--- NOTE | 2018-12-11 05:59 | NUR ---
I CONCUR WITH ENVIRONMENTAL GEOLOGIST ASSESSMENT.
--- NOTE | 2018-12-11 07:15 | NUR ---
MORNING ASSESSMENT COMPLETE. SEE ASSESSMENT FLWOSHEET FOR FURTHER DETAILS. PT LYING IN BED AAO X4 TO PERSON, PLACE, TIME, AND SITUATION. AT BEDSIDE. 3 LAP SITES AND MIDLINE INCISION NOTED TO ABD. SLIGHT DISTENTION NOTED TO ABD; PT CLAIMS IN HAS GONE DOWN A LOT. BOWEL SOUNDS ACTIVE X4. DENIES NEEDS AT THIS TIME. CL INR EACH.
[2018-12-11 08:05] VITALS: BP 162/80
[2018-12-11 11:49] VITALS: BP 151/69
[2018-12-11 16:45] VITALS: BP 166/78
--- NOTE | 2018-12-11 20:06 | NUR ---
PATIENT RESTING IN BED WITH VINEYARD WORKER AT BEDSIDE AND REQUESTED SLEEP MED. PATIENT DENIES OTHER NEEDS AT THIS TIME. BED IN LOWEST POSITION AND CL WITHIN REACH. ENCOURAGED THE PATIENT TO CALL IF HE HAS NEEDS. WILL ADMINISTER MEDS AND CONTINUE TO MONITOR.
[2018-12-11 20:41] VITALS: BP 147/71
[2018-12-12] MEDS ORDERED: NORCO 5/325 TAB1 TAB PO (00:11)
[2018-12-12 00:40] VITALS: BP 147/72
--- NOTE | 2018-12-12 01:52 | NUR ---
PATIENT RESTING IN BED WITH EYES CLOSED AND NO S/S OF DISTRESS. WILL CONTINUE TO MONITOR.
[2018-12-12 05:01] VITALS: BP 154/72
--- NOTE | 2018-12-12 08:00 | NUR ---
DISCHARGE PAPERWORK SIGNED, ALL QUESTIONS ANSWERED.
[2018-12-12 08:46] VITALS: BP 91/46
--- NOTE | 2018-12-14 12:24 | MORECARE ---
CASE MANAGEMENT DISCHARGE SUMMARY PATIENT: OG RANDLE UNIT: [id number] ADM DATE: 12/07/18 AGE: 78 : 42 SEX: M ROOM/BED: D.2205 AUTHOR: TARUNDOC PHYSICIAN: REFERRING PHYSICIAN: JESI BARNETT MD DATE OF SERVICE: 12/14/18 Discharge Plan Patient Name: OG RANDLE Facility: [facility]:[place] : 1940 Planned Disposition: Home Anticipated Discharge Date: Discharge Date: 12/12/2018 Expected LOS: Initial Reviewer: [email or web address] Initial Review Date: 12/07/2018 Generated: 12/14/18 1:24 pm Comments DCP- Discharge Planning Updated by [email or web address]: Gabriela Klein on 12/09/18 11:[address] Patient Name: OG RANDLE Admission Status: Elective Accout number: [id number] Admission Date: 12-07-2018 : 1940 Admission Diagnosis: Attending: JESI BARNETT Current LOS: 2 Anticipated DC Date: Planned Disposition: Home Primary Insurance: MEDICARE A & B Discharge Planning Comments: CM met with patient to assess discharge planning needs. Patient lives independently at home where he plans to return at discharge. 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 He states his home is safe to return. He denies any HH or DME needs at this time. IMM served and explained. He anticipates to be discharged tomorrow. CM will continue to follow and assist with DC planning as needed Sample Card Maker: Gabriela Klein DCPIA - Discharge Planning Initial Assessment Updated by [email or web address]: Gabriela Klein on 12/09/18 12:52 pm * Is the patient Alert and Oriented? Yes * How many steps to enter\exit or inside your home? * PCP [facility] * [facility] * Preadmission Environment Home with Family * ADLs Independent * Equipment None * List name and contact numbers for known caregivers / representatives who currently or will assist patient after discharge: ESSENCE () [phone] * Verbal permission to speak to the caregivers and representatives has been obtained from the patient. N/A * Community resources currently utilized None * Additional services required to return to the preadmission environment? No * Can the patient safely return to the preadmission environment? Yes * Has this patient been hospitalized within the prior 30 days at any hospital? No Coverage Notice Reviewer: [email or web address] - Gabriela Klein Notice Issued Date-Time: 12/09/2018 12:00 Notice Type: IM Discharge Notice Notice Delivered To: Patient Relationship to Patient: Product Manager Name: Delivery Method: HAND - Hand Delivered Brinda Days: Prior Verbal Notification: Recipient Understood Notice: Yes Recipient Signature: Yes Med Rec Note Co-signed by Attending: Coverage Notice Comment: Last DP export: 12/09/18 11:57 a Patient Name: OG RANDLE Page [id number] at 1224 All edits/amendments must be made on the electronic document DICTATION DATE: 12/14/181223 MACHINE ROOM OPERATOR: SOBEIDA 12/14/18 1224 RPT#: [id number] DC DATE:12/12/18 STATUS: DIS IN [facility] [address] [place] [address] END OF REPORT
[2019-01-11] MEDS ORDERED: PROTONIX40 MG PO (09:36)
== END 2018-12-12 09:01 | disposition home or self-care (01) | DRG 330 ==
LOC: D.MS 09:30 → D.SDCHOLD 09:30 → D.MS 16:10
PROVIDERS: ADMIT Surgery
PROC: 0DTN0ZZ Resection of Sigmoid Colon, Open Approach (ICD-10-PCS; principal; 2018-12-07 11:45)
DX: K57.32 Diverticulitis of large intestine without perforation or abscess without bleeding (principal); K56.7 Ileus, unspecified; I10 Essential (primary) hypertension; E78.00 Pure hypercholesterolemia, unspecified

== ENCOUNTER 2019-01-13 06:25 | Day surgery (SDC) | payer MEDICARE, OTHER ==
[2019-01-11 10:19] LABS: HEMATOCRIT 45.4 % (42.0-54.0); HEMOGLOBIN 15.5 g/dL (13.5-17.5); MCH 33.2 pg (26.0-34.0); MCHC 34.1 g/dL (31.0-37.0); MCV 97.2 fL (80.0-100.0); MEAN PLATELET VOLUME 9.7 fL (7.4-10.4); RBC 4.67 10x6/uL (4.20-6.10); RDW 12.7 % (11.5-14.5); WBC 9.1 10x3/uL (4.8-10.8)
[~2019-01-13] VITALS: Ht 180.3 cm; Wt 103.9 kg
[~2019-01-13 06:25] MED LIST changes: +NORCO 5/325 TAB1 TAB PO; +PROTONIX40 MG PO
[2019-01-13 06:38] VITALS: BP 145/70; Ht 180.3 cm; Wt 103.9 kg
--- NOTE | 2019-01-13 09:10 | NUR ---
REC'D FROM SURGERY. FAMILY AT BEDSIDE. FL TRAY BROUGHT TO PT.
--- NOTE | 2019-01-13 09:40 | NUR ---
TOLERATED DIET. IV DC'D WITH CATHETER INTACT. VOIDING WITHOUT DIFFICULTY.
--- NOTE | 2019-01-13 09:45 | NUR ---
WRITTEN AND VERBAL DC INST. GIVEN TO PT. VERBALIZED UNDERSTANDING.
--- NOTE | 2019-01-13 09:50 | NUR ---
DC'D HOME WITH FAMILY VIA PRIVATE VEHICLE. TAKEN TO VEHICLE VIA WC. STABLE AT TIME OF DC.
--- NOTE | 2019-01-13 10:06 | OP ---
PATIENT NAME: OG RANDLE MEDICAL RECORD: [id number] :44 LOCATION:D.OPS ADMISSION DATE: SURGEON: TAMIKO LONDON MD DATE OF OPERATION: 01/13/2019 SURGEON: Tamiko London MD ANESTHESIA: TIVA by Richie Thrasher CRNA DIAGNOSES: Obstructive benign prostatic hyperplasia. CHRISTIN 40 mL prostate. IPSS is 21. Quality of life score is 5. FINDINGS: UroLift with 5 implants deployed, 3 remained in the patient, 2 are in the left side and there is one on the right verumontanum level. FINDINGS: Bilateral lateral lobe hyperplasia, which is primarily obstructive towards the apex. Single ureteral orifices bilaterally with no bladder tumors. BLOOD LOSS: Minimal. CLINICAL HISTORY: This is a 78-year-old male with difficulty voiding. He has urinary urgency and frequency also. He had cystoscopy, which showed obstructive BPH. He comes today to have the UroLift procedure done. HE IS ALLERGIC TO MORPHINE. He was given Ancef electronic parts designer to the OR. DESCRIPTION OF PROCEDURE: We gave the patient IV sedation. He was then placed in the dorsal lithotomy position and prepped and draped. Cystoscopy showed an obstructive bilateral lateral lobes primarily near the apex. As we went towards the bladder neck, the bladder neck was relatively open. The prostatic urethra was short in length. The bladder was normal without any lesions. Single ureteral orifices are seen on each side. I initially placed the 2 atypical units at the level of the verumontanum. These were placed at the anterior lateral wall. One unit was placed on each side. I then placed a left bladder neck level unit about 1.5 cm distal to the bladder neck. This also held without any difficulty. I attempted twice to place a bladder neck unit on the right side, but both times I hit bone or some other structure on the opposite side of the prostate, which prevented the unit from firing properly. As the urethra was actually quite wide open, at this point I decided to abandon further attempts to place the unit into the right bladder neck level. TRANSINT:[id number] Voice Confirmation ID: [id number] DOCUMENT ID: [id number] TAMIKO LONDON MD at 1006 CC: [id number] DICTATION DATE: 01/13/19915 FLOORING SALESPERSON: 01/13/19948 [facility] [address] [id number]
== END 2019-01-13 09:50 | disposition home or self-care (01) ==
LOC: D.OPS 06:25 → D.PAN 10:00 → D.OPS 10:45
PROVIDERS: Anesthesiology; ATTEND Urology
DX: N40.1 Benign prostatic hyperplasia with lower urinary tract symptoms (principal); N13.8 Other obstructive and reflux uropathy; R35.0 Frequency of micturition; R39.15 Urgency of urination; Z88.5 Allergy status to narcotic agent; Z01.812 Encounter for preprocedural laboratory examination

== ENCOUNTER → 2019-02-10 13:06 | Outpatient (CLI) | payer MEDICARE, OTHER ==
[2019-01-13 06:38] VITALS: BMI 32.0
== END | disposition home or self-care (01) ==
LOC: D.RT 13:00
PROVIDERS: ATTEND Internal Medicine Pulmonary Disease
DX: R93.89 Abnormal findings on diagnostic imaging of other specified body structures (principal)

== ENCOUNTER → 2019-04-25 13:02 | Outpatient (CLI) | payer MEDICARE, OTHER ==
[2019-01-13 06:38] VITALS: BMI 32.0
== END | disposition home or self-care (01) ==
LOC: D.RAD 08:00
PROVIDERS: ATTEND Internal Medicine Gastroenterology
DX: R13.10 Dysphagia, unspecified (principal)

== ENCOUNTER → 2019-11-04 09:51 | Outpatient (CLI) | payer MEDICARE, OTHER ==
[2019-01-13 06:38] VITALS: BMI 32.0
--- NOTE | ~2019-11-04 | HEMODYNAMI ---
PATIENT:OG RANDLE MEDICAL RECORD: [id number] : 44 [id number] ADMISSION DATE: 11/04/19 Generatedon:11/04/201911:15 Patient name: OG RANDLE Patient #: [id number] SSN: : 1940 Date of study: 11/04/2019 Page: Of Hemodynamic Procedure Report Patient Data Patient Demographics Procedure consent was obtained First Name: OG Gender: Male Last Name: RAZIA : 1940 Middle Initial: F Age: 79 year(s) Patient #: [id number] Race: Unknown Additional ID: [id number] Contact details Address: [address] [place] [address] circle State: [place] City: [place] Zip code: [address] Past Medical History Allergies: No known allergies Admission Admission Data Admission Date: 11/04/2019 Admission Time: 9:51 Procedure Procedure Types Cath Procedure Peripheral Cath Diagnostic Procedure Miscellaneous Aspiration/Injection (Joint) Procedure Description Procedure Date Procedure Date: 11/04/2019 Procedure Start Time: 11:06 Procedure Staff Name Function Oswald Maharaj MD Performing Physician Kimo Lopez RT Monitor Vane Anthnoy RN Nurse Procedure Data Cath Procedure Fluoroscopy Diagnostic fluoroscopy Total fluoroscopy Time: 0.4 time: 0.4 min min Diagnostic fluoroscopy Total fluoroscopy dose: 7 dose: 7 mGy mGy Contrast Material Contrast Material Type Amount (ml) Isovue 300 6 Hemodynamics Rest Pre Cath Intra NCS Post Cath Procedure Log Time Note 10:51:00 Kimo Lopez RT (R) (CV) sent for patient. Start room use. 10:51:08 Patient received from Other to IR Alert and oriented. Tansferred to table in Supine position. 10:51:11 Signed procedure consent form obtained from patient. 10:51:12 Warm blankets applied, and maris hugger turned on for patient comfort. 10:51:13 Correct patient and procedure confirmed by team. 10:51:15 Full Disclosure recording started 10:51:15 - 10:51:16 Pre-procedure instructions explained to patient. 10:51:17 Pre-op teaching completed and patient verbalized understanding. 10:51:27 Is patient on blood thinner?No 10:51:35 Patient allergic to No known allergies 10:51:47 Right groin area was prepped with chlora-prep and draped in sterile fashion 11:05:28 Physician arrived 11:05:29 --------ALL STOP TIME OUT------ 11:05:29 Final Timeout: patient, procedure, and site verified with staff and physician. All members of the team are in agreement. 11:05:31 Right groin site verified by team. 11:05:37 Sedation plan: Local Anesthetic Medication:Lidocaine 11:05:52 Procedure started. 11:06:29 Local anesthetic to right hip with Lidocaine 1% by Oswald Maharaj MD.INITIAL ACCESS ONLY 11:06:53 SAFE-T PLUS MYELOGRAM TRAY opened to sterile field. 11:13:55 Procedure ended.(Physican Out) 11:14:08 Fluoroscopy time 00.40 minutes. 11:14:10 Fluoroscopy dose: 7 mGy 11:14:10 Flurop Dose total: 7 11:14:18 Contrast amount:Isovue 200 6ml. 11:14:54 BANAIDE APPLIED SITE STABLE AND PT SENT HOME Device Usage Item Name Manufacture Quantity Catalog Hospital Part Current Minimal Lot# / Number Charge Number Stock Stock Serial# Code SAFE-T CareFusion 1 [id number] PLUS MYELOGRAM TRAY Signature Audit [place] Stage Time Signature Unsigned Intra-Procedure 11/04/2019 Kimo 11:15:10 AM John RT (R) (CV) [facility] [address] [place] [address]
== END | disposition home or self-care (01) ==
LOC: D.RAD 09:51
PROVIDERS: ATTEND Nurse Practitioner Family
DX: M13.851 Other specified arthritis, right hip (principal)

== ENCOUNTER 2021-03-26 09:05 | Observation (INO) | payer MEDICARE, OTHER ==
[2021-03-22 12:06] LABS: ANION GAP 10.2 mmol/L (8-16); CALCIUM 8.8 mg/dL (8.5-10.1); CARBON DIOXIDE 30.9 mmol/L (21.0-32.0); CREATININE - SERUM 1.3 mg/dL (0.6-1.3); POTASSIUM - SERUM 4.1 mmol/L (3.5-5.1)
[2021-03-22 12:25] LABS: BASOPHILS 0.3 % (0-2); EOSINOPHILS 8.4 % (0-7); HEMATOCRIT 46.9 % (42.0-54.0); HEMOGLOBIN 15.5 g/dL (13.5-17.5); IMMATURE GRANULOCYTES 0.2 % (0-5); LYMPHOCYTE ABS# 1.51 10x3/uL (1.32-3.57); LYMPHOCYTES 24.3 % (15-50); MCH 33.2 pg (26.0-34.0); MCV 100.4 fL (80.0-100.0); MEAN PLATELET VOLUME 9.7 fL (7.4-10.4); MONOCYTES 7.2 % (2-11); NEUTROPHILS 59.6 % (40-80); PLATELET COUNT 200 10x3/uL (130-400); RBC 4.67 10x6/uL (4.20-6.10); RDW 12.4 % (11.5-14.5); WBC 6.2 10x3/uL (4.8-10.8)
[2021-03-22 12:34] LABS: BILIRUBIN NEGATIVE (NEGATIVE); KETONE NEGATIVE (NEGATIVE); NITRITE NEGATIVE (NEGATIVE); UROBILINOGEN NORMAL mg/dL (< 2)
[2021-03-22 12:36] LABS: WHITE CELLS - URINE 0-5 HPF (0-1)
[2021-03-22 12:37] LABS: APTT 27.3 SECONDS (22.8-39.4); BACTERIA NONE SEEN HPF (NONE SEEN); INR 1.03 (0.85-1.17); PROTIME 12.5 SECONDS (11.6-15.0); SQUAMOUS EPITHELIAL 0-5 HPF (0-4)
[~2021-03-26] VITALS: Ht 180.3 cm; Wt 102.1 kg
[2021-03-26] VITALS (10 sets, daily range): BP systolic 115–143; BP diastolic 46–114; BMI 32.1; BMI 31.4
[~2021-03-26 09:05] MED LIST changes: +CRESTOR40 MG PO; +DONEPEZIL HCL10 MG PO; +ELIQUIS2.5 MG PO; +HYDROCODON-ACE1 EA10 PO; +MELATONIN10 M1 PO
--- NOTE | 2021-03-26 17:30 | NUR ---
pt placed on cpm machine. ice bag to knee. call light in reach and fall alarm on and active. has not voided yet but urinal in reach
--- NOTE | 2021-03-26 18:39 | MORECARE ---
CASE MANAGEMENT DISCHARGE SUMMARY PATIENT: OG RANDLE UNIT: [id number] ADM DATE: 03/26/21 AGE: 80 : 42 SEX: M ROOM/BED: D.1209 AUTHOR: TARUN,LEE PHYSICIAN: REFERRING PHYSICIAN: DILCIA PRATT DO DATE OF SERVICE: 03/26/21 Case Management Discharge Planning Summary DCP REVIEW SUMMARY ANTICIPATED D/C DATE: EXPECTED LOS : CASE STATUS: DCP Initiated INITIAL REVIEW: 03/26/2021 INITIAL REVIEWER: Maksim Thomas FINAL DISCHARGE DISPOSITION: : FINAL REVIEWER: FINAL REVIEW DATE: DCP Focus Questions & Answers QUESTION: ANSWER : PATIENT: OG RANDLE ENCOUNTER: [id number] MEDICAL RECORD#: [id number] ADMISSION DATE: 03/26/2021 DISCHARGE DATE: ATTENDING MD: DILCIA ALCARAZ : AGE: 80 MARITAL STATUS: M DC PLAN ID: [id number] FACILITY: [facility] PRINTED ON: 03/26/21 18:39 CT All edits/amendments must be made on the electronic document DICTATION DATE: 03/26/211838 SPECIAL EDUCATION KINDERGARTEN TEACHER: DM 03/26/211838 RPT#: [id number] DC DATE: STATUS: ADM IN [facility] [address] [place] [address] END OF REPORT
--- NOTE | 2021-03-26 18:50 | MORECARE ---
CASE MANAGEMENT DISCHARGE SUMMARY PATIENT: OG WATSON UNIT: [id number] ADM DATE: 03/26/21 AGE: 80 : 42 SEX: M ROOM/BED: D.1209 AUTHOR: LEE MCNEIL PHYSICIAN: REFERRING PHYSICIAN: DILCIA PRATT DO DATE OF SERVICE: 03/26/21 Case Management Discharge Planning Summary COMMENTS ENTERED DATE: 03/26/21 18:44 CT COMMENT TYPE: Discharge Planning REVIEWER: Maksim Thomas CM met with patient to complete DC plan and to evaluate needs. Patient lives independently with his , Essence Watson, . Patient stated that his home is safe and has electricity and running water. Patient stated that he has no problems paying for medications and he fills his medications at [facility]. Patient stated that his primary care physician is Dr. Sanchez. At discharge, the patient plans to return home and feels this is a safe discharge. CM discussed availability of home health, rehab services, and medical equipment. Patient declined HHS, SNF, IPR, and DME. Patient would like outpatient PT with [facility] next to [facility]. Patient stated that he his CPM and Walker were delivered before his surgery. Patient stated that he has a Shower Bench. PAT signed and placed in chart. Patient voiced no other needs at this time and is satisfied with DC plan. Transportation provider at discharge will be with his , Sandra. MATTHEWS delivered, explained, signed by the patient, and placed in chart. Signed form also left with the patient. CM will continue to follow and will assist as needed with dc plans/needs. DCP REVIEW SUMMARY ANTICIPATED D/C DATE: EXPECTED LOS : CASE STATUS: DCP Initiated INITIAL REVIEW: 03/26/2021 INITIAL REVIEWER: Maksim Thomas FINAL DISCHARGE DISPOSITION: : FINAL REVIEWER: FINAL REVIEW DATE: DCP Focus Questions & Answers DCP Evaluation QUESTION: ANSWER Patient's ability to cope with chronic illness : d. No chronic illness Patient gives permission to discuss discharge plans with: (name, relationship and number) : Essence, Patient and/or caregiver agree upon recommended discharge plan? : Yes Family / Caregiver's ability to cope with chronic illness: : a. Adequate (ability to meet patient's medical needs, ensures patient attends medical appts.) Patient's current cognitive status: : *Oriented to person, place, situation, time and present Family / Caregiver's ability to cope with chronic illness: : a. Adequate (ability to meet patient's medical needs, ensures patient attends medical appts.) Physical Status: : Independent with ADL's Does the patient have the ability to pay for or attain post discharge needs / services? : Yes Functional screen assessment: : Basic needs can adequately be met by self Living Arrangements: : Home with Spouse/Significant Other Equipment needed for post hospitalization: : None Is there a likelihood that the patient will require additional services to return to the preadmission environment? : No Baseline cognitive status: : *Oriented to person, place, situation, time and present Patient with capacity for self-care or can be cared for in same environment as prior to hospitalization? : Yes Physical environment modification needed / anticipated for discharge: : No Medication Management: : Patient states can read and understand medication labels Medication Management: : Patient states can afford medications Pharmacy name(s): : [facility] Does Patient have transportation to get home and to follow-up medical appointments when discharged from the hospital? : Yes Would patient like to participate in any Care Coordination programs (if applicable): : Not applicable Does the patient have electricity at home? : Yes Does the patient have running water in their house? : Yes Equipment in use: : Shower Chair Mental health screen: : No mental health history DCP Re-evaluation QUESTION: ANSWER Would patient like to participate in any Care Coordination programs (if applicable): : Not applicable PATIENT: OG WATSON ENCOUNTER: [id number] MEDICAL RECORD#: [id number] ADMISSION DATE: 03/26/2021 DISCHARGE DATE: ATTENDING MD: DILCIA ALCARAZ : AGE: 80 MARITAL STATUS: M DC PLAN ID: [id number] FACILITY: [facility] PRINTED ON: 03/26/21 18:50 CT All edits/amendments must be made on the electronic document DICTATION DATE: 03/26/211849 COMPUTER PROGRAMMER: SOBEIDA 03/26/211849 RPT#: [id number] DC DATE: STATUS: ADM IN [facility] [address] [place] [address] END OF REPORT
--- NOTE | 2021-03-26 20:00 | NUR ---
ALERT RESTING IN BED, CPM IN USE DENIES PAIN OR NEEDS AT THIS TIME, SEE SHIFT ASSESSMENT CALL LIGHT IN REACH
[2021-03-27 00:07] VITALS: BP 145/82
[2021-03-27 04:00] VITALS: BP 156/74
[2021-03-27 07:00] VITALS: BP 160/67
[2021-03-27 07:16] LABS: BASOPHILS 0.2 % (0-2); EOSINOPHILS 8.3 % (0-7); HEMATOCRIT 39.7 % (42.0-54.0); HEMOGLOBIN 12.9 g/dL (13.5-17.5); IMMATURE GRANULOCYTES 0.2 % (0-5); LYMPHOCYTE ABS# 1.47 10x3/uL (1.32-3.57); LYMPHOCYTES 23.5 % (15-50); MCH 32.6 pg (26.0-34.0); MCHC 32.5 g/dL (31.0-37.0); MCV 100.3 fL (80.0-100.0); MEAN PLATELET VOLUME 10.2 fL (7.4-10.4); MONOCYTES 7.8 % (2-11); NEUTROPHIL ABS# 3.75 10x3/uL (1.78-5.38); RBC 3.96 10x6/uL (4.20-6.10); RDW 12.2 % (11.5-14.5); WBC 6.3 10x3/uL (4.8-10.8)
[2021-03-27 07:28] LABS: PLATELET COUNT 159 10x3/uL (130-400)
--- NOTE | 2021-03-27 07:30 | NUR ---
AWAKE AND ALERT. ORIENTED X3. LUNGS ARE CLEAR BILATERALLY, NO COUGH NOTED. SKIN IS INTACT WITHOUT REDNESS EXCEPT INCISION TO RIGHT KNEE WHICH HAS A DRY INTACT DRESSING IN PLCAE. IV TO LEFT FOREARM IS PATENT WITHOUT REDNESS AT INSERTION SITE. VOIDED CLEAR YELLOW URINE IN URINAL. DENIES NEEDS. ON CPM AT THIS TIME.
[2021-03-27 07:59] LABS: ALBUMIN 3.1 g/dL (3.4-5.0); ALKALINE PHOSPHATASE 225 U/L (30-120); ALT (SGPT) 15 U/L (10-68); BILIRUBIN - TOTAL 0.38 mg/dL (0.2-1.3); CALC OSMOLALITY 275 mosm/kg (275-300); CALCIUM 8.3 mg/dL (8.5-10.1); CARBON DIOXIDE 25.8 mmol/L (21.0-32.0); CHLORIDE - SERUM 104 mmol/L (98-107); GLUCOSE 83 mg/dL (74-106); POTASSIUM - SERUM 4.3 mmol/L (3.5-5.1); PROTEIN - SERUM 5.8 g/dL (6.4-8.2); SODIUM 139 mmol/L (136-145); UREA NITROGEN 11 mg/dL (7-18); eGFR NON AFRICAN AMERICAN 77 mL/min (90-120)
--- NOTE | 2021-03-27 08:00 | NUR ---
UP TO CHAIR AT BEDSIDE MIN ASSIST OF ONE. POSITIONED IN CHAIR FOR COMFORT.
--- NOTE | 2021-03-27 08:27 | OP ---
PATIENT NAME: OG WATSON MEDICAL RECORD: [id number] :44 LOCATION:D.M3 D.1209 ADMISSION DATE:03/26/21 SURGEON: OSWALD PRATT DO DATE OF OPERATION: 03/26/2021 PROCEDURE PERFORMED: Right total knee revision with poly swab and a partial synovectomy. PREOPERATIVE DIAGNOSIS: Instability of right knee. POSTOPERATIVE DIAGNOSIS: Instability of right knee. INDICATIONS: Mr. Watson is a 80-year-old male who has had right knee pain for quite some time and I did his right hip and he says his knee hurts him more than his hip did. He complained of instability, felt it could give out on him. I tested him and he did not have much flexion past 90, otherwise he had full extension. I told him that I would swab the poly out as he had instability in mid flexion and flexion, some. He was aware of the risks of this including infection, bleeding, damage to nerves and vessels, need for further surgery, continued pain, continued loss of motion, fracture, failure of implants and even blood clots, and he signed the consent. SURGEON: Oswald Pratt DO DESCRIPTION OF PROCEDURE: The patient was taken to the operative suite, given a spinal and adductor canal block, given 2 grams of Ancef, 80 mg gentamicin, and a gram of TXA. The right lower extremity was then prepped and draped in sterile fashion. Timeout was performed. Everyone was in agreement with the correct site, side, patient, and procedure. I then began by making an incision, marked out an incision over the old incision covered with an Ioban. I then made an incision with a #10 blade scalpel down to the capsule in a medial parapatellar approach with a fresh 10 blade and discovered some metalosis in the knee joint itself. I then proceeded to remove that with a rongeur and Bovie. Once I removed the metalosis reaction and synovium I ended up doing a partial synovectomy and then removed the poly, was an 11 poly and then put in a 13 trial, 13 trial fit very well and it flexed to just about 90 degrees and extended fully. He had good stability in flexion and extension and mid flexion. I took the trial out and then irrigated and then put in the deep 13 poly from Roberts and NephAnthillz and locked it into place. I then irrigated with 10% povidone iodine and 500 mL saline solution and put in the joint cocktail minus the morphine due to his allergy. I then irrigated that out with over a liter of normal saline, 10% povidone iodine and then closed the capsule, put in Edenilson, vancomycin, and tobramycin powder and closed the capsule with #1 Vicryl in a sxzflp-wj-amnjv fashion. Cm Jacobo, certified surgical customer assistance associate, closed the capsule with a running Stratafix and the skin with 2-0 Vicryl in interrupted fashion and put on a ZipLine, Adaptic, 4 x 4s, ABD, Webril, Tyrel wrap, and JOSE hose stockings awakened and taken to recovery in stable condition. BLOOD LOSS: Minimal. COMPLICATIONS: None. TRANSINT:[id number] Voice Confirmation ID: [id number] DOCUMENT ID: [id number] OPERATIVE REPORT [id number] OG WATSON MICHAEL D, DO at 0827 CC: [id number] DICTATION DATE: 03/26/21 1552 [place] OPERATOR: 03/27/21 0018 ADM IN [facility] [address] [place] [address]
--- NOTE | 2021-03-27 09:00 | NUR ---
AMBULATED IN HALLWAY WITH PT USING RW. ATE MOST OF BREAKFAST. TOOK AM MEDS WITHOUT DIFFICULTY.
[2021-03-27 11:00] VITALS: BP 172/79
[2021-03-27 14:29] VITALS: Ht 180.3 cm; Wt 102.1 kg
--- NOTE | 2021-03-27 15:56 | MORECARE ---
CASE MANAGEMENT DISCHARGE SUMMARY PATIENT: OG WATSON UNIT: [id number] ADM DATE: 03/26/21 AGE: 80 : 42 SEX: M ROOM/BED: D.1209 AUTHOR: TARUN,LEE PHYSICIAN: REFERRING PHYSICIAN: DILCIA PRATT DO DATE OF SERVICE: 03/27/21 Case Management Discharge Planning Summary COMMENTS ENTERED DATE: 03/26/21 18:44 CT COMMENT TYPE: Discharge Planning REVIEWER: Maksim Thomas CM met with patient to complete DC plan and to evaluate needs. Patient lives independently with his , Essence Watson, . Patient stated that his home is safe and has electricity and running water. Patient stated that he has no problems paying for medications and he fills his medications at [facility]. Patient stated that his primary care physician is Dr. Sanchez. At discharge, the patient plans to return home and feels this is a safe discharge. CM discussed availability of home health, rehab services, and medical equipment. Patient declined HHS, SNF, IPR, and DME. Patient would like outpatient PT with [facility] next to [facility]. Patient stated that he his CPM and Walker were delivered before his surgery. Patient stated that he has a Shower Bench. PAT signed and placed in chart. Patient voiced no other needs at this time and is satisfied with DC plan. Transportation provider at discharge will be with his , Sandra. MATTHEWS delivered, explained, signed by the patient, and placed in chart. Signed form also left with the patient. CM will continue to follow and will assist as needed with dc plans/needs. DCP REVIEW SUMMARY ANTICIPATED D/C DATE: EXPECTED LOS : CASE STATUS: DCP Initiated INITIAL REVIEW: 03/26/2021 INITIAL REVIEWER: Maksim Thomas FINAL DISCHARGE DISPOSITION: : FINAL REVIEWER: FINAL REVIEW DATE: DCP Focus Questions & Answers DCP Evaluation QUESTION: ANSWER Patient's current cognitive status: : *Oriented to person, place, situation, time and present Family / Caregiver's ability to cope with chronic illness: : a. Adequate (ability to meet patient's medical needs, ensures patient attends medical appts.) Patient and/or caregiver agree upon recommended discharge plan? : Yes Patient gives permission to discuss discharge plans with: (name, relationship and number) : , Essence Watson, Patient's ability to cope with chronic illness : d. No chronic illness Functional screen assessment: : Basic needs can adequately be met by self Does the patient have the ability to pay for or attain post discharge needs / services? : Yes Physical Status: : Independent with ADL's Family / Caregiver's ability to cope with chronic illness: : a. Adequate (ability to meet patient's medical needs, ensures patient attends medical appts.) Is there a likelihood that the patient will require additional services to return to the preadmission environment? : No Equipment needed for post hospitalization: : None Living Arrangements: : Home with Spouse/Significant Other Patient with capacity for self-care or can be cared for in same environment as prior to hospitalization? : Yes Baseline cognitive status: : *Oriented to person, place, situation, time and present Physical environment modification needed / anticipated for discharge: : No Medication Management: : Patient states can afford medications Medication Management: : Patient states can read and understand medication labels Pharmacy name(s): : [facility] Does Patient have transportation to get home and to follow-up medical appointments when discharged from the hospital? : Yes Would patient like to participate in any Care Coordination programs (if applicable): : Not applicable Does the patient have electricity at home? : Yes Does the patient have running water in their house? : Yes Equipment in use: : Shower Chair Mental health screen: : No mental health history DCP Re-evaluation QUESTION: ANSWER Would patient like to participate in any Care Coordination programs (if applicable): : Not applicable PATIENT: OG WATSON ENCOUNTER: [id number] MEDICAL RECORD#: [id number] ADMISSION DATE: 03/26/2021 DISCHARGE DATE: ATTENDING MD: DILCIA ALCARAZ : AGE: 80 MARITAL STATUS: M DC PLAN ID: [id number] FACILITY: [facility] PRINTED ON: 03/27/21 15:55 CT All edits/amendments must be made on the electronic document DICTATION DATE: 03/27/211554 MOTOR VEHICLE DISPATCHER: SOBEIDA 03/27/21 155 RPT#: [id number] DC DATE: STATUS: ADM IN [facility] [address] [place] [address] END OF REPORT
[2021-03-27] MEDS ORDERED: HYDROCODON-ACE1 EA10 PO (16:12)
[2021-03-27] MEDS ORDERED: ELIQUIS2.5 MG PO (16:12)
--- NOTE | 2021-03-27 17:13 | MORECARE ---
CASE MANAGEMENT DISCHARGE SUMMARY PATIENT: OG WATSON UNIT: [id number] ADM DATE: 03/26/21 AGE: 80 : 42 SEX: M ROOM/BED: D.1209 AUTHOR: TARUN,DOC PHYSICIAN: REFERRING PHYSICIAN: DILCIA PRATT DO DATE OF SERVICE: 03/27/21 Case Management Discharge Planning Summary COMMENTS ENTERED DATE: 03/27/21 17:07 CT COMMENT TYPE: Discharge Planning REVIEWER: Kia Kennedy CM called [facility] and schedule patient therapy appointment for Thursday 11:00. Faxed orders / records as requested. CM met with patient and instructed him on therapy appointment. Patient verbalized understanding and satisfaction with discharge plan. CM gave patient photocopy of scheduled appointment. Denies any other discharge planning needs at this time. ENTERED DATE: 03/26/21 18:44 CT COMMENT TYPE: Discharge Planning REVIEWER: Maksim Thomas CM met with patient to complete DC plan and to evaluate needs. Patient lives independently with his , Essence Watson, . Patient stated that his home is safe and has electricity and running water. Patient stated that he has no problems paying for medications and he fills his medications at [facility]. Patient stated that his primary care physician is Dr. Sanchez. At discharge, the patient plans to return home and feels this is a safe discharge. CM discussed availability of home health, rehab services, and medical equipment. Patient declined HHS, SNF, IPR, and DME. Patient would like outpatient PT with [facility] next to [facility]. Patient stated that he his CPM and Walker were delivered before his surgery. Patient stated that he has a Shower Bench. PAT signed and placed in chart. Patient voiced no other needs at this time and is satisfied with DC plan. Transportation provider at discharge will be with his , Essence. MATTHEWS delivered, explained, signed by the patient, and placed in chart. Signed form also left with the patient. CM will continue to follow and will assist as needed with dc plans/needs. DCP REVIEW SUMMARY ANTICIPATED D/C DATE: EXPECTED LOS : CASE STATUS: DCP Initiated INITIAL REVIEW: 03/26/2021 INITIAL REVIEWER: Maksim Thomas FINAL DISCHARGE DISPOSITION: : FINAL REVIEWER: FINAL REVIEW DATE: DCP Focus Questions & Answers DCP Evaluation QUESTION: ANSWER Patient's current cognitive status: : *Oriented to person, place, situation, time and present Family / Caregiver's ability to cope with chronic illness: : a. Adequate (ability to meet patient's medical needs, ensures patient attends medical appts.) Patient and/or caregiver agree upon recommended discharge plan? : Yes Patient gives permission to discuss discharge plans with: (name, relationship and number) : , Essence Watson, Patient's ability to cope with chronic illness : d. No chronic illness Functional screen assessment: : Basic needs can adequately be met by self Does the patient have the ability to pay for or attain post discharge needs / services? : Yes Physical Status: : Independent with ADL's Family / Caregiver's ability to cope with chronic illness: : a. Adequate (ability to meet patient's medical needs, ensures patient attends medical appts.) Is there a likelihood that the patient will require additional services to return to the preadmission environment? : No Equipment needed for post hospitalization: : None Living Arrangements: : Home with Spouse/Significant Other Patient with capacity for self-care or can be cared for in same environment as prior to hospitalization? : Yes Baseline cognitive status: : *Oriented to person, place, situation, time and present Physical environment modification needed / anticipated for discharge: : No Medication Management: : Patient states can afford medications Medication Management: : Patient states can read and understand medication labels Pharmacy name(s): : [facility] Does Patient have transportation to get home and to follow-up medical appointments when discharged from the hospital? : Yes Would patient like to participate in any Care Coordination programs (if applicable): : Not applicable Does the patient have electricity at home? : Yes Does the patient have running water in their house? : Yes Equipment in use: : Shower Chair Mental health screen: : No mental health history DCP Re-evaluation QUESTION: ANSWER Would patient like to participate in any Care Coordination programs (if applicable): : Not applicable PATIENT: OG WATSON ENCOUNTER: [id number] MEDICAL RECORD#: [id number] ADMISSION DATE: 03/26/2021 DISCHARGE DATE: ATTENDING MD: DILCIA ALCARAZ : AGE: 80 MARITAL STATUS: M DC PLAN ID: [id number] FACILITY: [facility] PRINTED ON: 03/27/21 17:13 CT All edits/amendments must be made on the electronic document DICTATION DATE: 03/27/211712 PHOTOGRAPHIC TECHNICIAN: SOBEIDA 03/27/211712 RPT#: [id number] DC DATE: STATUS: ADM IN [facility] [address] [place] [address] END OF REPORT
--- NOTE | 2021-03-27 17:33 | NUR ---
DISCHARGED TO HOME AMBULATORY WITH . DRESSING TO RIGHT KNEE CHANGED PER ORDERS. INCISION IS CLEAN AND DRY, WELL APPROXIMATED. INSTRUCTED IN CHANGES. DISCHARGE INSTRUCTIONS GIVEN BOTH VERBALLY AND WRITTEN. ALL QUESTIONS ANSWERED. PATIENT AND VERBALIZED UNDERSTANDING OF SAME. IV TO LEFT FOREARM D/C WITH CATHETER INTACT. PATIENT GIVEN 4 EXTRA DRESSINGS FOR HOME USE. NEEDED PRESCRIPTIONS GIVEN TO PATIENT. ALL BELONGINGS WITH PATIENT.
--- NOTE | 2021-03-27 17:38 | MORECARE ---
CASE MANAGEMENT DISCHARGE SUMMARY PATIENT: OG WATSON UNIT: [id number] ADM DATE: 03/26/21 AGE: 80 : 42 SEX: M ROOM/BED: D.1209 AUTHOR: TARUN,DOC PHYSICIAN: REFERRING PHYSICIAN: DILCIA PRATT DO DATE OF SERVICE: 03/27/21 Case Management Discharge Planning Summary COMMENTS ENTERED DATE: 03/27/21 17:07 CT COMMENT TYPE: Discharge Planning REVIEWER: Kia Kennedy CM called [facility] and schedule patient therapy appointment for Thursday 11:00. Faxed orders / records as requested. CM met with patient and instructed him on therapy appointment. Patient verbalized understanding and satisfaction with discharge plan. CM gave patient photocopy of scheduled appointment. Denies any other discharge planning needs at this time. ENTERED DATE: 03/26/21 18:44 CT COMMENT TYPE: Discharge Planning REVIEWER: Maksim Thomas CM met with patient to complete DC plan and to evaluate needs. Patient lives independently with his , Essence Watson, . Patient stated that his home is safe and has electricity and running water. Patient stated that he has no problems paying for medications and he fills his medications at [facility]. Patient stated that his primary care physician is Dr. Sanchez. At discharge, the patient plans to return home and feels this is a safe discharge. CM discussed availability of home health, rehab services, and medical equipment. Patient declined HHS, SNF, IPR, and DME. Patient would like outpatient PT with [facility] next to [facility]. Patient stated that he his CPM and Walker were delivered before his surgery. Patient stated that he has a Shower Bench. PAT signed and placed in chart. Patient voiced no other needs at this time and is satisfied with DC plan. Transportation provider at discharge will be with his , Essence. MATTHEWS delivered, explained, signed by the patient, and placed in chart. Signed form also left with the patient. CM will continue to follow and will assist as needed with dc plans/needs. DCP REVIEW SUMMARY ANTICIPATED D/C DATE: EXPECTED LOS : CASE STATUS: DCP Initiated INITIAL REVIEW: 03/26/2021 INITIAL REVIEWER: Maksim Thomas FINAL DISCHARGE DISPOSITION: : FINAL REVIEWER: FINAL REVIEW DATE: DCP Focus Questions & Answers DCP Evaluation QUESTION: ANSWER Patient's current cognitive status: : *Oriented to person, place, situation, time and present Family / Caregiver's ability to cope with chronic illness: : a. Adequate (ability to meet patient's medical needs, ensures patient attends medical appts.) Patient and/or caregiver agree upon recommended discharge plan? : Yes Patient gives permission to discuss discharge plans with: (name, relationship and number) : , Essence Watson, Patient's ability to cope with chronic illness : d. No chronic illness Functional screen assessment: : Basic needs can adequately be met by self Does the patient have the ability to pay for or attain post discharge needs / services? : Yes Physical Status: : Independent with ADL's Family / Caregiver's ability to cope with chronic illness: : a. Adequate (ability to meet patient's medical needs, ensures patient attends medical appts.) Is there a likelihood that the patient will require additional services to return to the preadmission environment? : No Equipment needed for post hospitalization: : None Living Arrangements: : Home with Spouse/Significant Other Patient with capacity for self-care or can be cared for in same environment as prior to hospitalization? : Yes Baseline cognitive status: : *Oriented to person, place, situation, time and present Physical environment modification needed / anticipated for discharge: : No Medication Management: : Patient states can afford medications Medication Management: : Patient states can read and understand medication labels Pharmacy name(s): : [facility] Does Patient have transportation to get home and to follow-up medical appointments when discharged from the hospital? : Yes Would patient like to participate in any Care Coordination programs (if applicable): : Not applicable Does the patient have electricity at home? : Yes Does the patient have running water in their house? : Yes Equipment in use: : Shower Chair Mental health screen: : No mental health history DCP Re-evaluation QUESTION: ANSWER Would patient like to participate in any Care Coordination programs (if applicable): : Not applicable PATIENT: OG WATSON ENCOUNTER: [id number] MEDICAL RECORD#: [id number] ADMISSION DATE: 03/26/2021 DISCHARGE DATE: 03/27/2021 ATTENDING MD: DILCIA ALCARAZ : AGE: 80 MARITAL STATUS: M DC PLAN ID: [id number] FACILITY: [facility] PRINTED ON: 03/27/21 17:38 CT All edits/amendments must be made on the electronic document DICTATION DATE: 03/27/211737 POUAKO KURA KAUPAPA MAORI: SOBEIDA 03/27/211737 RPT#: [id number] DC DATE:03/27/21 STATUS: DIS IN [facility] [address] [place] [address] END OF REPORT
--- NOTE | 2021-03-28 10:34 | MORECARE ---
CASE MANAGEMENT DISCHARGE SUMMARY PATIENT: OG WATSON UNIT: [id number] ADM DATE: 03/26/21 AGE: 80 : 42 SEX: M ROOM/BED: D.1209 AUTHOR: TARUN,DOC PHYSICIAN: REFERRING PHYSICIAN: DILCIA PRATT DO DATE OF SERVICE: 03/28/21 Case Management Discharge Planning Summary COMMENTS ENTERED DATE: 03/27/21 17:07 CT COMMENT TYPE: Discharge Planning REVIEWER: Kia Kennedy CM called [facility] and schedule patient therapy appointment for Thursday 11:00. Faxed orders / records as requested. CM met with patient and instructed him on therapy appointment. Patient verbalized understanding and satisfaction with discharge plan. CM gave patient photocopy of scheduled appointment. Denies any other discharge planning needs at this time. ENTERED DATE: 03/26/21 18:44 CT COMMENT TYPE: Discharge Planning REVIEWER: Maksim Thomas CM met with patient to complete DC plan and to evaluate needs. Patient lives independently with his , Essence Watson, . Patient stated that his home is safe and has electricity and running water. Patient stated that he has no problems paying for medications and he fills his medications at [facility]. Patient stated that his primary care physician is Dr. Sanchez. At discharge, the patient plans to return home and feels this is a safe discharge. CM discussed availability of home health, rehab services, and medical equipment. Patient declined HHS, SNF, IPR, and DME. Patient would like outpatient PT with [facility] to [facility]. Patient stated that he his CPM and Walker were delivered before his surgery. Patient stated that he has a Shower Bench. PAT signed and placed in chart. Patient voiced no other needs at this time and is satisfied with DC plan. Transportation provider at discharge will be with his , Essence. MATTHEWS delivered, explained, signed by the patient, and placed in chart. Signed form also left with the patient. CM will continue to follow and will assist as needed with dc plans/needs. DCP REVIEW SUMMARY ANTICIPATED D/C DATE: EXPECTED LOS : CASE STATUS: DCP Initiated INITIAL REVIEW: 03/26/2021 INITIAL REVIEWER: Maksim Thomas FINAL DISCHARGE DISPOSITION: : FINAL REVIEWER: FINAL REVIEW DATE: DCP Focus Questions & Answers DCP Evaluation QUESTION: ANSWER Patient's ability to cope with chronic illness : d. No chronic illness Patient gives permission to discuss discharge plans with: (name, relationship and number) : , Essence Watson, Patient and/or caregiver agree upon recommended discharge plan? : Yes Family / Caregiver's ability to cope with chronic illness: : a. Adequate (ability to meet patient's medical needs, ensures patient attends medical appts.) Patient's current cognitive status: : *Oriented to person, place, situation, time and present Family / Caregiver's ability to cope with chronic illness: : a. Adequate (ability to meet patient's medical needs, ensures patient attends medical appts.) Physical Status: : Independent with ADL's Does the patient have the ability to pay for or attain post discharge needs / services? : Yes Functional screen assessment: : Basic needs can adequately be met by self Living Arrangements: : Home with Spouse/Significant Other Equipment needed for post hospitalization: : None Is there a likelihood that the patient will require additional services to return to the preadmission environment? : No Baseline cognitive status: : *Oriented to person, place, situation, time and present Patient with capacity for self-care or can be cared for in same environment as prior to hospitalization? : Yes Physical environment modification needed / anticipated for discharge: : No Medication Management: : Patient states can read and understand medication labels Medication Management: : Patient states can afford medications Pharmacy name(s): : [facility] Does Patient have transportation to get home and to follow-up medical appointments when discharged from the hospital? : Yes Would patient like to participate in any Care Coordination programs (if applicable): : Not applicable Does the patient have electricity at home? : Yes Does the patient have running water in their house? : Yes Equipment in use: : Shower Chair Mental health screen: : No mental health history DCP Re-evaluation QUESTION: ANSWER Would patient like to participate in any Care Coordination programs (if applicable): : Not applicable PATIENT: OG WATSON ENCOUNTER: [id number] MEDICAL RECORD#: [id number] ADMISSION DATE: 03/26/2021 DISCHARGE DATE: 03/27/2021 ATTENDING MD: DILCIA ALCARAZ : AGE: 80 MARITAL STATUS: M DC PLAN ID: [id number] FACILITY: [facility] PRINTED ON: 03/28/21 10:34 CT All edits/amendments must be made on the electronic document DICTATION DATE: 03/28/21 1034 SURGICAL TECHNOLOGIST: SOBEIDA 03/28/21 1034 RPT#: [id number] DC DATE:03/27/21 STATUS: DIS IN [facility] [address] [place] [address] END OF REPORT
== END 2021-03-27 17:37 | disposition home or self-care (01) ==
LOC: D.M3 09:05 → D.OPS 09:05 → D.M3 10:20 → D.OPS 11:00 → OBSVTIME 12:04 → D.M3 12:04 → D.OPS 12:04 → D.M3 12:04
PROVIDERS: Family Medicine; ADMIT Orthopaedic Surgery; ATTEND Orthopaedic Surgery
DX: M23.51 Chronic instability of knee, right knee (principal); I10 Essential (primary) hypertension; M16.11 Unilateral primary osteoarthritis, right hip; E78.5 Hyperlipidemia, unspecified; K57.92 Diverticulitis of intestine, part unspecified, without perforation or abscess without bleeding; N40.0 Benign prostatic hyperplasia without lower urinary tract symptoms; F32.9 Major depressive disorder, single episode, unspecified; D64.9 Anemia, unspecified; Z96.651 Presence of right artificial knee joint

== ENCOUNTER 2021-05-08 09:45 | Day surgery (SDC) | payer MEDICARE, OTHER ==
[~2021-05-08] VITALS: Ht 180.3 cm; Wt 94.5 kg
[2021-05-08 10:18] LABS: HEMATOCRIT 42.6 % (42.0-54.0); HEMOGLOBIN 14.2 g/dL (13.5-17.5); MCH 31.7 pg (26.0-34.0); MCHC 33.3 g/dL (31.0-37.0); MCV 95.1 fL (80.0-100.0); MEAN PLATELET VOLUME 6.8 fL (7.4-10.4); RBC 4.48 10x6/uL (4.20-6.10); RDW 13.2 % (11.5-14.5); WBC 5.9 10x3/uL (4.8-10.8)
[2021-05-08 10:23] LABS: ANION GAP 9.6 mmol/L (8-16); CALCIUM 9.2 mg/dL (8.5-10.1); CREATININE - SERUM 1.2 mg/dL (0.6-1.3); POTASSIUM - SERUM 4.6 mmol/L (3.5-5.1)
[2021-05-08 10:35] LABS: APTT 28.3 SECONDS (22.8-39.4); INR 1.09 (0.85-1.17); PROTIME 13.1 SECONDS (11.6-15.0)
[2021-05-08 10:49] VITALS: BP 142/34; Ht 180.3 cm; Wt 94.5 kg
--- NOTE | 2021-05-08 15:31 | NUR ---
1415 IV D/C'D WITH TIP INTACT.
--- NOTE | 2021-05-08 15:32 | NUR ---
1435 - PATIENT UP TO DRESS FOR DISCHARGE. INSTRUCTIONS GIVEN ALONG WITH LIST OF NSAIDS TO AVOID FOR 10-14 DAYS. PATIENT IS NO LONGER ON ELEQUIS OR ANY BLOOD THINNERS.
--- NOTE | 2021-05-08 15:33 | NUR ---
1445 - PATIENT DISCHARGED VIA WHEELCHAIR TO PRIVATE CAR.
== END 2021-05-08 14:45 | disposition home or self-care (01) ==
LOC: D.OPS 09:45
PROVIDERS: Anesthesiology; ATTEND Surgery
DX: K22.2 Esophageal obstruction (principal); K21.9 Gastro-esophageal reflux disease without esophagitis; K59.00 Constipation, unspecified; K57.30 Diverticulosis of large intestine without perforation or abscess without bleeding; I10 Essential (primary) hypertension; M16.11 Unilateral primary osteoarthritis, right hip; M25.361 Other instability, right knee; E78.00 Pure hypercholesterolemia, unspecified; Z68.30 Body mass index [BMI] 30.0-30.9, adult; I50.22 Chronic systolic (congestive) heart failure